=== PATIENT | male | born 1980 | race Caucasian/White ===

== ENCOUNTER 2025-02-12 14:42 | Emergency (ER) | payer BC, SELFPAY ==
[2025-02-12] VITALS (10 sets, daily range): BP systolic 143–180; BP diastolic 77–93; PULSE 68–77; RESP 15–20; TEMP 36.4–36.7; O2SAT 98–99
--- NOTE | ~2025-02-12 | XR_ITS ---
EXAMINATION: XR chest 2V 02/12/2025 16:06 INDICATION: Chest pain PROCEDURE: 2 view chest COMPARISON: No prior studies for comparison. FINDINGS: The lungs are clear. The cardiomediastinal silhouette is within normal limits. There are no pleural effusions. There is no pneumothorax suspected. IMPRESSION: 1: NO ACUTE CARDIOPULMONARY DISEASE. Reviewed, dictated and finalized at location O.
--- NOTE | ~2025-02-12 | US_ITS ---
US right upper quadrant INDICATION: Right upper quadrant pain. Nausea and vomiting. PROCEDURE: Realtime right upper abdominal ultrasound. COMPARISON: No prior studies for comparison. FINDINGS: The pancreas is normal without focal mass or pancreatic ductal dilation. Liver echotexture is increased, consistent with fatty infiltration. No focal hepatic mass. There is normal directional flow in the portal vein. The gallbladder is normal without stones, gallbladder wall thickening or pericholecystic fluid. Common bile duct measures 8 mm mm. No sonographic Denis's sign. Right renal echotexture is unremarkable. IMPRESSION: 1: Fatty infiltration of the liver. 2: Mildly dilated common bile duct measuring 8 mm. Consider correlation with MRCP examination to exclude choledocholithiasis or obstructing mass. Reviewed, dictated and finalized at location O. IMPRESSION: 1: Fatty infiltration of the liver. 2: Mildly dilated common bile duct measuring 8 mm. Consider correlation with MR CP examination to exclude choledocholithiasis or obstructing mass.
--- NOTE | 2025-02-12 14:43 | ECG_ITS ---
Test Date: 2025-02-12 14:52:29 Measurements Intervals [place] Rate: 70 P: 63 FL: 172 QRS: 12 QRSD: 100 T: 30 QT: 399 QTc: 432 Interpretive Statements SINUS RHYTHM BASELINE ARTIFACT- I, III, AVR, AVL NORMAL ECG No previous ECG available for comparison Electronically Signed On 02-12-2025 17:03:59 CDT by Popeye Rodriguez D.O.
[2025-02-12 15:14] LABS: Hematocrit 43.9 % (42.0-52.0); Hemoglobin 15.1 g/dL (14.0-18.0); Immature Granulocyte Percent A 0.5 % (0-0.5); Immature Platelet Fraction Pct 3.8 % (0.9-11.2); Lymphocytes Absolute Auto 1.52 K/mm3 (0.9-3.2); Mean Corpuscular HGB Conc 34.4 g/dl (32-36); Mean Corpuscular Hemoglobin 30.6 pg (26-34); Mean Corpuscular Volume 88.9 fl (80-100); Nucleated Red Blood Cells Absolute Auto 0.000 K/mm3 (0.0-0.012); Nucleated Red Blood Cells Perc 0.0 % (0.0-0.2); Platelet Count Result 108 k/mm3 (150-375); Red Blood Count 4.94 M/mm3 (4.6-6.20); White Blood Count 5.5 K/mm3 (4.5-10.0)
[2025-02-12 15:24] LABS: INR 1.2; Partial Thromboplastin Time 26.9 Seconds (22.3-36.8); Prothrombin Time 15.0 Seconds (11.1-14.7)
[2025-02-12 15:30] LABS: Alanine Aminotransferase 66 U/L (6-50); Albumin Level 4.4 g/dL (3.5-5.1); Alkaline Phosphatase 92 U/L (38-126); Anion Gap 8 mmol/L (4-12); Aspartate Amino Transferase 64 U/L (17-59); Bilirubin,Total 1.6 mg/dL (0.2-1.3); Blood Urea Nitrogen 8 mg/dL (9-20); Calcium 9.2 mg/dL (8.4-10.2); Carbon Dioxide 24 mmol/L (22-30); Chloride 102 mmol/L (98-107); Estimated CRCL calculation 168 ml/min; Estimated Glomerular Filt Rate > 60; Glucose 142 mg/dL (65-110); Lipase 176 U/L (23-300); Potassium 3.7 mmol/L (3.4-5.0); Sodium 134 mmol/L (137-145); Total Protein 8.4 g/dL (6.3-8.2)
[2025-02-12] MEDS: ASPIRIN 81 MG CHEWABLE TABLET 324 MG PO (15:36)
[2025-02-12 15:41] LABS: Troponin I < 0.012 ng/mL (0.000-0.034)
[2025-02-12] MEDS: MORPHINE SULFATE (*CRX) 4 MG/ML INJ IV PUSH (16:06)
--- NOTE | 2025-02-12 17:15 | ED_ITS ---
HPI - General Adult General Chief complaint: Chest Pain Stated complaint: chest pain Time Seen by Provider: 02/12/25 15:35 History of Present Illness HPI narrative: Patient is a 44-year-old male who presents ER with chest pain. Right-sided. Intermittent. Ongoing over last 3 weeks. Has become more consistent today. Feels fullness in his abdomen as well. Mild nausea no vomiting. Has noticed worsening symptoms with eating at times but not always. He felt some radiation to his left arm today which is different for him. No history of DE. he does have COPD. Related Data Allergies Allergy/AdvReac Type Severity Reaction Status Date / Time No Known Allergies Allergy Mild Verified 10/31/10 15:34 Review of Systems 2 Review of Systems: All systems reviewed & are unremarkable except as noted in HPI and below Constitutional: Constitutional: Reports no additional constitutional complaints ENT: Reports system reviewed and no additional complaints, except as documented Cardiovascular: Cardiovascular: Reports no additional cardiovascular complaints Respiratory: Respiratory: Reports no additional respiratory complaints Gastrointestinal: Gastrointestinal: Reports no additional gastrointestinal complaints Musculoskeletal: Musculoskeletal: Reports no additional musculoskeletal complaints [facility] Past Medical History Medical History (Updated 02/12/25 @ 18:24 by Donte Paris MD) COPD (chronic obstructive pulmonary disease) Surgical History Surgical History (Updated 02/12/25 @ 17:18 by Donte Paris MD) History of intestinal surgery Unknown obstruction at age 5 years. Exam 2 Narrative: GENERAL: Well-appearing, well-nourished, and in no acute distress. HEAD: Normocephalic, atraumatic. ENT: Mucous membranes moist. CHEST: Clear to auscultation. No respiratory distress. HEART: Regular rate and rhythm. Normal peripheral pulses. ABDOMEN: Soft, mild discomfort right upper quadrant without guarding, nondistended. EXTREMITIES: Normal range of motion. No edema. SKIN: Warm, dry, no rash. NEURO: Alert and oriented x3. PSYCH: Normal mood and affect. Course Course Emergency Course: Cardiac enzymes negative x2. Pain down to 2/10 after IV pain medication. Still mild discomfort right upper quadrant. Discussed with GI, Dr. Pittman. Recommends omeprazole 20 mg b.i.d. and follow-up with clinic. Will also recommend low-fat diet. Transaminitis may be more reflective of the fatty liver seen on ultrasound. Patient educated on diagnosis and treatment plan and verbalized understanding. Vital Signs Vital signs: Vital Signs Temperature 97.6 F 02/12/25 14:43 Pulse Rate 74 02/12/25 14:43 Respiratory Rate 20 02/12/25 14:43 Blood Pressure 180/82 H 02/12/25 14:43 Pulse Oximetry 98 02/12/25 14:43 Oxygen Delivery Room Air 02/12/25 14:43 Temperature 98.1 F 02/12/25 15:41 Pulse Rate 77 02/12/25 17:46 Respiratory Rate 15 02/12/25 17:46 Blood Pressure 163/90 H 02/12/25 17:46 Pulse Oximetry 99 02/12/25 17:46 Oxygen Delivery Room Air 02/12/25 15:46 Medical Decision Making Vital Signs Vital Signs: Vital Signs Temperature 97.6 F 02/12/25 14:43 Pulse Rate 74 02/12/25 14:43 Respiratory Rate 20 02/12/25 14:43 Blood Pressure 180/82 H 02/12/25 14:43 Pulse Oximetry 98 02/12/25 14:43 Oxygen Delivery Room Air 02/12/25 14:43 Temperature 98.1 F 02/12/25 15:41 Pulse Rate 77 02/12/25 17:46 Respiratory Rate 15 02/12/25 17:46 Blood Pressure 163/90 H 02/12/25 17:46 Pulse Oximetry 99 02/12/25 17:46 Oxygen Delivery Room Air 02/12/25 15:46 Lab Data 02/12/25 15:01 02/12/25 15:01 Labs: Lab Results 02/12/25 02/12/25 Range/Units 15:01 17:43 WBC 5.5 (4.5-10.0) K/mm3 RBC 4.94 (4.6-6.20) M/mm3 Hgb 15.1 (14.0-18.0) g/dL Hct 43.9 (42.0-52.0) % MCV 88.9 (80-100) fl MCH 30.6 (26-34) pg MCHC 34.4 (32-36) g/dl RDW 12.6 (11.5-14.5) % Plt Count 108 L (150-375) k/mm3 MPV 9.5 (7.4-10.4) fl Immature Gran % (Auto) 0.5 (0-0.5) % Neut % (Auto) 58.3 (45.5-73.1) % Lymph % (Auto) 27.7 (18.3-44.2) % Castro % (Auto) 8.4 (2.6-8.5) % Eos % (Auto) 4.0 (0-4.4) % Baso % (Auto) 1.1 (0.2-1.2) % Lymph # (Auto) 1.52 (0.9-3.2) K/mm3 Castro # (Auto) 0.5 (0.1-0.6) K/mm3 Eos # (Auto) 0.2 (0-0.3) K/mm3 Baso # (Auto) 0.1 (0.0-0.1) K/mm3 Abs Immat Gran (auto) 0.03 (0.00-0.031) K/mm3 Absolute Neuts (auto) 3.2 (1.3-6.7) K/mm3 Absolute Nucleated RBC 0.000 (0.0-0.012) K/mm3 Nucleated RBC % 0.0 (0.0-0.2) % % Immature Plt Fraction 3.8 (0.9-11.2) % PT 15.0 H (11.1-14.7) Seconds INR 1.2 APTT 26.9 (22.3-36.8) Seconds Sodium 134 L (137-145) mmol/L Potassium 3.7 (3.4-5.0) mmol/L Chloride 102 (98-107) mmol/L Carbon Dioxide 24 (22-30) mmol/L Anion Gap 8 (4-12) mmol/L BUN 8 L (9-20) mg/dL Creatinine 0.64 L (0.7-1.3) mg/dL Estim Creat Clear Calc 168 ml/min Estimated GFR > 60 (59 - ) Glucose 142 H (65-110) mg/dL Calcium 9.2 (8.4-10.2) mg/dL Total Bilirubin 1.6 H (0.2-1.3) mg/dL AST 64 H (17-59) U/L ALT 66 H (6-50) U/L Alkaline Phosphatase 92 (38-126) U/L Troponin I < 0.012 < 0.012 (0.000-0.034) ng/mL Total Protein 8.4 H (6.3-8.2) g/dL Albumin 4.4 (3.5-5.1) g/dL Lipase 176 (23-300) U/L Imaging Data Radiologist's impression: ITS Impressions Chest X-Ray 02/12/25 16:07 IMPRESSION: 1: NO ACUTE CARDIOPULMONARY DISEASE. Upper Quadrant Ultrasound 02/12/25 17:07 IMPRESSION: 1: Fatty infiltration of the liver. 2: Mildly dilated common bile duct measuring 8 mm. Consider correlation with MRCP examination to exclude choledocholithiasis or obstructing mass. ECG Data EKG #1: ECG completion date: 02/12/25 ECG completion time: 14:52 EKG Interpretation: normal rate (70), sinus rhythm, no ST changes, normal QRS, normal QT and NL axis Discharge Plan Discharge Clinical Impression: Atypical chest pain Patient Disposition: Still a Patient Condition: Stable Instructions: Low Fat Diet (ED), Abdominal Pain (ED) Additional Instructions: Return to the emergency department if you develop severe abdominal pain, severe nausea and vomiting to the point where you are unable to keep down fluids, if you develop chest pain or difficulty breathing, blood in your stool, dizziness or fainting, or if you develop any other new or concerning symptoms as these could be signs of more serious medical illness. Try to stay well hydrated. Patient Language: Burkinan Prescriptions: New omeprazole 20 mg capsule,delayed release(DR/EC) 20 mg PO BID Qty: 30 0RF Follow-up/Referrals: PHYSICIAN,MEMBERSHIP MANAGER [Primary Care Provider, Internal Medicine] Jeet Pittman MD [Physician, Gastroenterology] - 1 Week Quality HEART score for chest pain patients History: slightly suspicious ECG: normal Age: < or = to 45 years Risk factors: 1 or 2 risk factors Troponin: < or = to 1x normal limit Heart score: 1
--- NOTE | 2025-02-12 17:32 | ECG_ITS ---
Test Date: 2025-02-12 17:35:45 Measurements Intervals [place] Rate: 65 P: 21 ID: 130 QRS: 16 QRSD: 106 T: 37 QT: 409 QTc: 426 Interpretive Statements SINUS RHYTHM NORMAL ECG Compared to ECG 02/12/2025 14:52:29 No significant changes Electronically Signed On 02-12-2025 20:20:34 CDT by Popeye Rodriguez D.O.
[2025-02-12 18:13] LABS: Troponin I < 0.012 ng/mL (0.000-0.034)
== END 2025-02-12 18:57 | disposition home or self-care (01) ==
PROVIDERS: Emergency Provider Emergency Medicine
DX: R07.89 Other chest pain (principal); J44.9 Chronic obstructive pulmonary disease, unspecified; K76.0 Fatty (change of) liver, not elsewhere classified; K83.8 Other specified diseases of biliary tract
CPT/HCPCS: 36415; 71046; 76705; 80053; 83690; 84484; 85025; 85055; 85610; 85730; 93005; 96374; 99284; A9270; J2270

== ENCOUNTER 2025-03-22 10:29 | Outpatient (CLI) | payer BC, SELFPAY ==
--- OUTSIDE RECORDS SUMMARY | 2025-03-22 11:19 | XMS_ITS | Clinical Summary ---
Author Organization [facility] [employer] Address [address] [place] [address] Care Team Providers Care Body Component Engineer Name Role Phone Unavailable Primary Care Provider Unavailabl e Source Comments [facility],non-owned Affiliates and Associated Physician Practices is amultiple site organization consisting of ambulatory clinics and hospital sitesin [place], [place], [place] and [place]. This disclosure is being madepursuant to the Care Everywhere program and may not contain all information available regarding this patient. Last updated 18.[employer] [facility] [employer] Allergies No known active allergies Medications * Be aware that medications may not be up to date on this document. Alwaysverify current medications with the patient. gabapentin (NEURONTIN) 300 MG capsule Take 300 mg by mouth at bedtime Active ONETOUCH ULTRA test strip USE TO TEST BLOOD SUGAR ONCE DAILY 11/28/2020 Active metFORMIN (GLUCOPHAGE) 500 MG tablet Take 500 mg by mouth 2 times daily with morning and evening meal Active Active Problems Problem Noted Date Diagnosed Date Diabetes mellitus type II, uncontrolled 11/22/19 21 Acute traumatic pain 11/21/2020 Decreased mobility 11/21/2020 Vitamin D deficiency 11/21/2020 Closed physeal fracture of phalanx of toe of rig ht foot 11/17/2020 Closed fracture of neck of metatarsal bone of ri ght foot Closed dislocation of great toe of right foot Closed nondisplaced fracture of phalanx of toe o f left foot Immunizations Immunization Administration Dates Next Due TDAP (7yrs+) 11/17/2020 Social History Tobacco Use Types Packs/Day Years Used Date Smoking Tobacco: Every Day Cigars Smokeless Tobacco: Former Chew Quit: 2000 Alcohol Use Standard Drinks/Week Comments Never 0 (1 standard drink = 0.6 oz pur e alcohol) Sex and Gender Information Value Date Recorded Sex Assigned at Not on file 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 Gender Identity Not on file Sexual Orientation Not on file Last Filed Vital Signs Vital Sign Reading Time Taken Comments Blood Pressure 136/75 11/21/2020 11:59 AM CDT Pulse 70 11/21/2020 11:59 AM CDT Temperature 36.3 C (97.3 F) 11/21/2020 11:59 AM CDT Respiratory Rate 18 11/21/2020 11:59 AM CDT Oxygen Saturation 98% 11/21/2020 11:59 AM CDT Inhaled Oxygen Concentration - - Weight 134.3 kg (296 lb) 02/20/2021 10:24 AM CDT Height 177.8 cm (5' 10) 12/19/2020 4:15 PM CDT Body Mass Index 42.47 12/19/2020 4:15 PM CDT Plan of Treatment Health Maintenance Due Date Last Done Comments COLOGUARD (AGES 45-75) - COLON CA SCREENING 1980 COLON MONITORING 1980 COLONOSCOPY - COLON CA SCREENING 1980 CT COLONOGRAPHY - COLON CA SCREENING 1980 Colorectal Cancer Screening 1980 FIT - COLON CA SCREENING 1980 FLEX SIG - COLON CA SCREENING 1980 HIV SCREENING 02/18/1995 HEPATITIS C SCREENING 02/14/1998 HEPATITIS B VACCINE (1 of 3 - 19+ 3-dose series) 02/18/1999 PNEUMOCOCCAL VACCINE (1 of 2 - PCV) 02/18/1999 HPV VACCINE (1 - 3-dose SCDM series) 02/18/2007 DIABETES-STATIN 2020 DIABETES-FOOT EXAM WITH MONOFILAMENT 11/21/2020 DIABETES-HGB A1C 2021 11/19/2020 DIABETES-SERUM CREATININE 11/21/20212020, 11/20/2020, 11/19/2020, Additional history exists DEPRESSION SCREENING 06/23/2024 DIABETES - URINE PROTEIN SCREENING 06/23/2024 COVID-19 VACCINE ( - season) 2025 INFLUENZA VACCINE (#1) 2025 ZOSTER VACCINE (1 of 2) 02/18/2030 DTAP/TDAP/TD VACCINES (2 - Td or Tdap) 11/17/2030 11/17/2020 HIB VACCINE Aged Out No longer eligi ble based on patient's age to complete this topic MENINGOCOCCAL (Group B) VACCINE SHARED DECISION-MAKING Aged Out No longer eligible based on patient's age to complete this topic MENINGOCOCCAL GROUPS A/C/Y/W VACCINE Aged Out No longer eligible based on patient's age to complete this topic Medical Devices Implanted Type Area Cementer Oil Well Device Identifier Shelf Expiration Date Model / Serial / Lot Wire K 2mm 150mm Troc Pnt Ss Fx Strl Implanted:Qty: 2 on 11/18/2020 by Tolu Coughlin DO at [facility] Right: Foot [employer] 06/19/2030 [id number] / / [id number] Procedures Procedure Name Priority Date/Time Associated Diagnosis Comments BASIC METABOLIC PANEL (CALCIUM TOTAL) AM Draw 11/21/2020 6:16 AM CDT HEMOGLOBIN A1C Routine 11/19/2020 3:40 AM CDT from Last 3 Months or Most Recently Relevant to Health Maintenance Results * (ABNORMAL) BASIC METABOLIC PANEL (CALCIUM TOTAL) (11/21/2020 6:16 AM CDT) BUN 9 7 - 26 mg/dL 11/21/2020 7:52 AM [facility] Creatinine 0.63(L) 0.71 - 1.16 mg/dL 11/21/2020 7:52 AM [facility] Sodium 136 136 - 145 mmol/L 11/21/2020 7:52 AM [facility] Potassium 4.1 3.5 - 4.5 mmol/L 11/21/2020 7:52 AM [facility] Comment:Hemolysis detected i n this specimen. Hemolysis is known to cause elevations in this analyte. Caution should be exercised in the interpretation of this result. Recommend repeat testing if clinically indicated. Chloride 100 98 - 107 mmol/L 11/21/2020 7:52 AM [facility] CO2 22 22 - 29 mmol/L 11/21/2020 7:52 AM [facility] Glucose 185(H) 70 - 115 mg/dL 11/21/2020 7:52 AM [facility] Calcium 8.5 8.4 - 10.2 mg/dL 11/21/2020 7:[address] [facility] Anion Gap 18 8 - 18 11/21/2020 7:52 [address] [facility] BUN/Creatinine Ratio 14 7 - 23 11/21/2020 7:52 AM [facility] Osmolality Calculated 285 270 - 300 mOsm/kg 11/21/2020 7:52 AM [facility] eGFR by CKD-EPI >90 >=90 mL/min/1. 73 m2 11/21/2020 7:52 AM [facility] Blood BLOOD SPECIMEN / Unknown Lab Venipuncture / Unknown 11/21/2020 6:16 AM CDT 11/21/2020 7:06 AM CDT us Efrem Erazo MD LAB - CHEMISTRY ORDERABLES Fin al Result Performing Organization Address City/State/[facility] Co de Phone Number [facility] [address] [place] [address], [facility] [phone] * (ABNORMAL) HEMOGLOBIN A1C (11/19/2020 3:40 AM CDT) Hemoglobin A1c 8.9(H) 4.4 - 6.3 % 11/19/2020 9:55 AM [facility] Estimated Average Glucose 209 mg/dL 11/19/2020 9:55 AM [facility] Comment: HbA1c Interpretation: Treatment target values recommended by ADA and other clinical organizations should be used to evaluate metabolic control in patients. Treatment Target Values: Normal : < 5.7% Pre-diabetes: 5.7-6.4% Diabetes: Equal to or greater than 6.5% Reference: [place] [employer] Association Standards of Care in Diabetes -2014 In patients 70 years and older consider HbA1c target range of 7.0-7.5% Reference: Diabetes Mellitus in Older People: Position Statement on behalf of the International Association of Gerontology and Geriatrics (IAGG), the Diabetes Working Libertarian for Older People (EDWPOP), and the International Task Force of Experts in Diabetes. Smith A, et al. J [place] [employer]. 2012 Test results diagnostic of diabetes should be repeated for confirmation. The [place] Capillary 2 assay for the measurement of HbA1c is a National Glycohemoglobin Standardization Program (NGSP)certified method. Blood BLOOD SPECIMEN / Unknown Lab Venipuncture / Unknown 11/19/2020 3:40 AM CDT 11/19/2020 3:46 AM CDT us Efrem Erazo MD LAB - CHEMISTRY ORDERABLES Fin al Result [facility] [address] [place] [address], [facility] [phone] from Last 3 Months or Most Recently Relevant to Health Maintenance Insurance [facility] [id number] [employer] LIABILITY Libertarian Liability [facility] PLAN [facility] Advance Directives * Full Code (Latest Code Status on File) Date Activated Date Inactivated Comments 11/17/2020 5:47 PM 11/21/2020 5:03 PM * Full Code Date Activated Date Inactivated Comments 11/17/2020 5:22 PM 11/17/2020 5:47 PM
--- OUTSIDE RECORDS SUMMARY | 2025-03-22 11:19 | XMS_ITS | Clinical Summary ---
Author Organization [facility] Address [address] [place] [address] Care Team Providers Care Operations Business Partner Name Role Phone No, Physician Primary Care Provider [phone] Allergies No known active allergies Medications blood-glucose meter kit Use as directed. 1 kit 11/16/2024 Active blood glucose diagnostic (glucose blood) strip Use as directed up to four times a day. 100 each 1 11/16/2024 Active lancets misc Use as directed up to 4 times a day. 100 each 1 11/16/2024 Active alcohol swabs (Alcohol Wipes) pads, medicated Use as directed. 100 each 11/16/2024 Active metFORMIN (GLUCOPHAGE) 500 mg tablet Take 1 tablet (500 mg total) by mouth 2 (two) times a day with meals 60 tablet 11/16/2024 Active Active Problems Problem Noted Date Diagnosed Date Cellulitis of left lower extremity 11/15/2024 Overview (11/15/2024): Presented 1 week after log rolled onto his LLE, resulting initially in small wound. Wound has worsened with increasing redness and sweling over time, resulting in presentation. No F/C and HDS on admission. WBC stable. Xray with soft tissue swelling and likely vascular calcification, although unable to rule out debris. S/p Tdap and Ancef in ED Assessment & Plan (11/16/2024 9:50 AM CDT): Patient presented with LLE swelling, erythema consistent with Cellulitis, after dropping something on his left leg [address] of left leg with edema and skin thickening overlying the lateral mid and lower calf. Previously described tiny densities are consistent with vascular calcifications, no radiopaue foreign body identified. Received TDAP in emergency department. - Abx: Continue Ancef for now. Will transition to Keflex vs Augmentin on discharge. - Continued recommendation for adequate DM control. Assessment & Plan (11/15/2024 9:36 PM CDT): - continue Ancef for now. Will transition to Keflex on discharge - CT left leg to eval if possible debris present that may warrant more aggressive management - continued recommendation for adequate DM control Uncontrolled type 2 diabetes mellitus with hyper glycemia 11/15/2024 Overview (11/15/2024): BG on presentation 397-->400 with A1c of 9.0%. Appears he may have at one point been on metformin 500mg BID, although has not filled since 2020. Has not seen a PCP in many years. Does not note any neuropathy, although may have at one point been on gabapentin per dispense report. Assessment & Plan (11/16/2024 9:50 AM CDT): Patient presented with hyperglycemia > 300, A1c 9.0. Has history of DM, does not follow with PCP x 10 years. Improved with IV insulin. - SSI insulin, will adjust per needs - carb consistent diet - Cr stable at this time. Can likely resume metformin on discharge. Will ultimately likely need 2 agents. - defer all DM management (including DM foot exam, UACR, eye exam, initiation of medications, etc) for outpatient provider. Discussed with patient establishing with us, but wishes to follow up in [place]. Assessment & Plan (11/15/2024 9:36 PM CDT): - IV insulin per hyperglycemia order set for BG > 300 - SSI insulin, will adjust per needs - carb consistent diet - Cr stable at this time. Can likely resume metformin on discharge - defer all DM management (including DM foot exam, UACR, eye exam, initiation of medications, etc) for outpatient provider Thrombocytopenia 11/15/2024 Assessment & Plan (11/16/2024 9:50 AM CDT): - HIV, HepC both negative. - Continue to monitor. Assessment & Plan (11/15/2024 11:48 PM CDT): - HIV, HepC screening - monitor for bleeding, trend CBC Immunizations Immunization Administration Dates Next Due Tdap 11/15/2024 Social History Tobacco Use Types Packs/Day Years Used Date Smoking Tobacco: Former Cigarettes Q uit: 06/23/1994 Tobacco Cessation:Counseling Given: Not Answered Personal Safety Answer Date Recorded Have you ever been in or are you currently in a harmful physical or emotional relationship or is someone making you feel afraid or unsafe? Denies 11/16/2024 Sex and Gender Information Value Date Recorded Sex Assigned at Not on file Legal Sex Male 7:16 PM [employer] Gender Identity Not on file Sexual Orientation Not on file Obstetrics History Last Filed Vital Signs Vital Sign Reading Time Taken Comments Blood Pressure 131/68 11/16/2024 8:00 AM CDT Pulse 62 11/16/2024 8:00 AM CDT Temperature 36.6 C (97.9 F) 11/16/2024 8:00 AM CDT Respiratory Rate 16 11/16/2024 8:00 AM CDT Oxygen Saturation 95% 11/16/2024 8:00 AM CDT Inhaled Oxygen Concentration - - Weight 127.6 kg (281 lb 6.4 oz) 025 12:30 AM CDT Height 177.8 cm (5' 10) 11/16/2024 12: 30 AM CDT Body Mass Index 40.38 11/16/2024 12:30 AM CDT Plan of Treatment Health Maintenance Due Date Last Done Comments Albumin Creatinine Ratio, Urine 1980 Colon Cancer Screening-Colonoscopy 1980 Depression Screening 1980 Dilated Eye Exam 1980 Foot Exam 1980 Lipid Panel 1980 Varicella Vaccines (1 of 2 - 13+ 2-dose series) 02/18/1993 Hepatitis B Screening 02/18/1998 Regular Well Visit/Exam 18-64 02/18/1998 Pneumococcal vaccine <65 (1 of 2 - PCV) 02/18/1999 HPV Vaccines (1 - 3-dose SCDM series) 02/18/2007 Influenza Vaccine (#1) 2025 Hemoglobin A1C 05/18/2025 11/15/2024, 10/22, 11/19/2020 eGFR 11/16/2025 11/16/2024, 10/22, 11/15/2024 DTaP/Tdap/Td Vaccine (3 - Td or Tdap) 11/15/2034, 11/17/2020 Hepatitis C Screening Completed 11/16/2024 Procedures Procedure Name Priority Date/Time Associated Diagnosis Comments HEPATITIS C ANTIBODY Routine 11/16/2024 5:50 AM CDT EGFR Routine 11/16/2024 5:50 AM CDT HEMOGLOBIN A1C STAT 11/15/2024 6:24 PM CDT from Last 3 Months or Most Recently Relevant to Health Maintenance Results * eGFR (11/16/2024 5:50 AM CDT) eGFR >90 >=60 mL/min/1. 73 m2 Comment: Interpretive Data Reference Interval Normal >/= 90 mL/min/1.73m2 Mildly decreased* 60 - 89 mL/min/1.73m2 Mildly to moderately decreased 45 - 59 mL/min/1.73m2 Moderately to severely decreased 30 - 44 mL/min/1.73m2 Severely decreased 15 - 29 mL/min/1.73m2 Kidney Failure < 15 mL/min/1.73m2 *Relative to young adult level Estimated glomerular filtration rate is determined by the 2020 CKD-EPI equation recommended by the National Kidney Foundation (A Unifying Approach to GFR Estimation: Recommendations of the NKF-ASK Task Force on Reassessing the Inclusion of Race in Diagnosing Kidney Disease, JASN 2020). The CKD-EPI equation should not be used for patients with unstable renal function and has not been validated in children and those over 70. Current interpretive data was last reviewed 2021. Blood 11/16/2024 5:50 AM CDT 11/16/2024 6:45 AM CDT Anamika Best MD LAB BLOOD ORDERABLES Final Result Performing Organization Address [facility] Co de Phone Number [facility] [place] [place] [address] * Hepatitis C antibody Blood (11/16/2024 5:50 AM CDT) Hep C Ab Nonreactive Nonreactive Comment:Antibodies to HCV no t detected. Does NOT exclude the possibility of recent exposure to HCV. Current interpretive data was last revised on 22 Blood 11/16/2024 5:50 AM CDT 11/16/2024 6:45 AM CDT Result [facility] Dilshad Baker MD LAB MICROBIOLOGY - GENERAL ORDERABLES Final Result Performing Organization Address [facility] de Phone Number [facility] [place] [address] * (ABNORMAL) Hemoglobin A1c (11/15/2024 6:24 PM CDT) Hgb A1C 9.0(H) 4.0 - 5.6 % Estimated Average Glucose 212 mg/dL [facility] Comment: The ADA recommends reporting an estimated Average Glucose (eAG) with all Hemoglobin A1c results using the equation derived from a study of 507 normal and diabetic adults. Minority populations were underrepresented and children were not included. (Diabetes Care 2020; 43(S1): S66-S76). The eAG is not equivalent to a fasting glucose. Blood 11/15/2024 6:24 PM CDT 11/15/2024 7:00 PM CDT Amberly Murrell MD LAB BLOOD ORDERABLES Margie l Result Performing Organization Address [facility] [place] [address] from Last 3 Months or Most Recently Relevant to Health Maintenance Advance Directives For more information, please contact: [phone] * Full Code (Latest Code Status on File) Date Activated Date Inactivated Comments 11/15/2024 9:16 PM 11/16/2024 6:25 PM Care Teams Operations Business Partner Relationship Specialty Start Date End Date No, Physician PCP - General 11/15/24
[2025-03-22 11:24] LABS: Hematocrit 44.6 % (42.0-52.0); Hemoglobin 14.9 g/dL (14.0-18.0); Mean Corpuscular HGB Conc 33.4 g/dl (32-36); Mean Corpuscular Hemoglobin 30.3 pg (26-34); Mean Corpuscular Volume 90.8 fl (80-100); Platelet Count Result 146 k/mm3 (150-375); Red Blood Count 4.91 M/mm3 (4.6-6.20); White Blood Count 6.5 K/mm3 (4.5-10.0)
[2025-03-22 11:54] LABS: Alanine Aminotransferase 53 U/L (6-50); Albumin Level 4.5 g/dL (3.5-5.1); Alkaline Phosphatase 86 U/L (38-126); Anion Gap 9 mmol/L (4-12); Aspartate Amino Transferase 52 U/L (17-59); Bilirubin,Total 1.4 mg/dL (0.2-1.3); Blood Urea Nitrogen 7 mg/dL (9-20); Calcium 9.3 mg/dL (8.4-10.2); Carbon Dioxide 28 mmol/L (22-30); Chloride 98 mmol/L (98-107); Estimated Glomerular Filt Rate > 60; Glucose 122 mg/dL (65-110); Potassium 4.1 mmol/L (3.4-5.0); Sodium 135 mmol/L (137-145); Total Protein 9.0 g/dL (6.3-8.2)
== END 2025-03-22 10:30 | disposition home or self-care (01) ==
LOC: ANHLAB 10:31
PROVIDERS: Visit Provider Nurse Practitioner Family
DX: K83.8 Other specified diseases of biliary tract (principal); K76.0 Fatty (change of) liver, not elsewhere classified; R79.89 Other specified abnormal findings of blood chemistry; E80.6 Other disorders of bilirubin metabolism; R10.11 Right upper quadrant pain; R11.0 Nausea; K59.00 Constipation, unspecified
CPT/HCPCS: 36415; 80053; 82248; 85027